=== PATIENT | male | born 1965 | race Caucasian/White ===

== ENCOUNTER 2024-03-01 13:27 | Outpatient (REF) | payer BC, SELFPAY ==
[2024-03-01 19:28] LABS: HCT 43.9 % (40.0-50.0); HGB 14.6 g/dL (13.5-17.5); MCH 31.8 pg (27.0-33.0); MCHC 33.3 % (32.0-36.0); MCV 96 fL (80-95); MPV 10.4 fL (8.0-11.0); Platelet Count 221 10^3/uL (130-400); RBC 4.59 10^6/uL (4.36-5.78); RDW 11.9 % (11.8-14.1); RDW-SD 41.1 fL; WBC 4.91 10^3/uL (4.4-10.8)
[2024-03-01 20:02] LABS: ALT 67 U/L (16-63); AST 45 U/L (15-37); Albumin 4.3 g/dL (3.4-5.0); Alkaline Phosphatase 79 U/L (46-116); Anion Gap 7.9 mmol/L (3-11); BUN 15 mg/dL (7-18); Bilirubin, Total 1.53 mg/dL (0.2-1.0); CO2 29.1 mmol/L (21.0-32.0); Calcium 9.6 mg/dL (8.5-10.1); Chloride 104 mmol/L (98-107); Glucose 104 mg/dL (74-106); Potassium 4.3 mmol/L (3.5-5.1); Sodium 141 mmol/L (136-145); Total Protein 7.7 g/dL (6.4-8.2)
== END 2024-03-01 13:28 | disposition home or self-care (01) ==
LOC: NCHCN 13:27
PROVIDERS: PCP Physician Assistant; Visit Provider Physician Assistant
DX: Z01.818 Encounter for other preprocedural examination (principal)
CPT/HCPCS: 80053; 85027

== ENCOUNTER 2024-06-14 14:29 | Outpatient (REF) | payer BC, SELFPAY ==
[2024-06-17 09:37] LABS: PSA, Diagnostic 0.3 ng/mL (<=3.5)
[2024-06-20 11:37] LABS: Testosterone, Total 214 ng/dL (240-950)
== END 2024-06-14 14:30 | disposition home or self-care (01) ==
LOC: NCHCN 14:29
PROVIDERS: PCP Physician Assistant; Visit Provider Physician Assistant
DX: E23.0 Hypopituitarism (principal)
CPT/HCPCS: 84403; 84153

== ENCOUNTER 2024-09-03 12:22 | Outpatient (REF) | payer BC, SELFPAY ==
[2024-09-03 19:29] LABS: HCT 48.2 % (40.0-50.0); MCH 30.9 pg (27.0-33.0); MCHC 33.2 % (32.0-36.0); MCV 93 fL (80-95); MPV 10.1 fL (8.0-11.0); Platelet Count 250 10^3/uL (130-400); RBC 5.18 10^6/uL (4.36-5.78); RDW 13.1 % (11.8-14.1); RDW-SD 44.7 fL
[2024-09-03 19:48] LABS: ALT 105 U/L (16-63); AST 60 U/L (15-37); Albumin 4.6 g/dL (3.4-5.0); Alkaline Phosphatase 87 U/L (46-116); Anion Gap 8.9 mmol/L (3-11); BUN 15 mg/dL (7-18); Bilirubin, Total 1.7 mg/dL (0.2-1.0); CO2 28.1 mmol/L (21.0-32.0); Calcium 9.6 mg/dL (8.5-10.1); Chloride 104 mmol/L (98-107); Estimated GFR 86.16 (mL/min/1.73m2); Glucose 107 mg/dL (74-106); Potassium 4.3 mmol/L (3.5-5.1); Sodium 141 mmol/L (136-145)
[2024-09-04 18:54] LABS: PSA, Screening 0.5 ng/mL (<=4.5)
[2024-09-09 10:29] LABS: Testosterone, Total 924 ng/dL (240-950)
== END 2024-09-03 12:23 | disposition home or self-care (01) ==
LOC: NCHCN 12:22
PROVIDERS: PCP Physician Assistant; Visit Provider Physician Assistant
DX: E23.0 Hypopituitarism (principal); Z01.818 Encounter for other preprocedural examination
CPT/HCPCS: 80053; 84153; 84403; 85027

== ENCOUNTER 2024-09-05 09:29 | Outpatient (REF) | payer BC, SELFPAY ==
[2024-09-05 19:22] LABS: Iron 76 ug/dL (65-175); Total Iron Binding Capacity 352 ug/dL (250-450); Transferrin Sat 22 % (20-55)
[2024-09-05 19:34] LABS: Ferritin 98 ng/mL (26-388)
[2024-09-06 19:01] LABS: Hepatitis A Antibody IgM Negative (Negative); Hepatitis B Core Antibody Negative (Negative); Hepatitis B surface Ag Negative (Negative); Hepatitis C Ab w Rflx HCV PCR Negative (Negative)
[2024-09-09 11:40] LABS: Alpha 1 Antitrypsin,Serum 126 mg/dL (90-200)
== END 2024-09-05 09:30 | disposition home or self-care (01) ==
LOC: NCHCN 09:29
PROVIDERS: PCP Physician Assistant; Visit Provider Physician Assistant
DX: R74.8 Abnormal levels of other serum enzymes (principal)
CPT/HCPCS: 86704; 86709; 86803; 87340; 82103; 82728; 83540; 83550

== ENCOUNTER 2025-03-11 10:25 | Outpatient (REF) | payer BC, SELFPAY ==
[2025-03-11 19:35] LABS: HCT 46.5 % (40.0-50.0); HGB 15.5 g/dL (13.5-17.5); MCH 31.5 pg (27.0-33.0); MCHC 33.3 % (32.0-36.0); MCV 95 fL (80-95); MPV 10.1 fL (8.0-11.0); Platelet Count 226 10^3/uL (130-400); RBC 4.92 10^6/uL (4.36-5.78); RDW 12.6 % (11.8-14.1); RDW-SD 43.6 fL; WBC 4.56 10^3/uL (4.4-10.8)
[2025-03-11 20:05] LABS: ALT 77 U/L (16-63); AST 45 U/L (15-37); Albumin 4.5 g/dL (3.4-5.0); Alkaline Phosphatase 87 U/L (46-116); Anion Gap 8.5 mmol/L (3-11); BUN 16 mg/dL (7-18); Bilirubin, Total 1.2 mg/dL (0.2-1.0); CO2 29.5 mmol/L (21.0-32.0); Calcium 9.4 mg/dL (8.5-10.1); Chloride 102 mmol/L (98-107); Glucose 116 mg/dL (74-106); Potassium 4.9 mmol/L (3.5-5.1); Sodium 140 mmol/L (136-145); Total Protein 7.8 g/dL (6.4-8.2)
== END 2025-03-11 10:26 | disposition home or self-care (01) ==
LOC: NCHCN 10:25
PROVIDERS: PCP Physician Assistant; Visit Provider Physician Assistant
DX: R79.89 Other specified abnormal findings of blood chemistry (principal)
CPT/HCPCS: 80053; 85027